=== PATIENT | female | born 1950 | race Caucasian/White ===

== ENCOUNTER → 2017-08-13 | Day surgery (SDC) | payer MEDICARE ==
[2017-08-12 08:43] VITALS: BMI 32.3
[~2017-08-13] MED LIST: LIDOCAINE 1% 20 ML VIAL (10MG/ML) FOR IV START INTRADERMA PRN; PROPOFOL 10 MG/ML 20 ML VIAL IV ONE
[2017-08-13 08:21] VITALS: RESP 16; TEMP 97.5
[2017-08-13] MEDS: LACTATED RINGERS 1,000 ML IV SCH ×2 (08:34→08:45)
--- NOTE | 2017-08-13 09:04 | P.PCN ---
Date of Procedure: 08/13/17 Procedure(s) Performed: BRIEF HISTORY: Patient is a 67-year-old pleasant white female, scheduled for an elective colonoscopy as a part of surveillance of long-standing history of ulcerative colitis diagnosed in 1975. She remains in clinical remission. PROCEDURE PERFORMED: Colonoscopy with random biopsies. PREOPERATIVE DIAGNOSIS: Long-standing history of ulcerative colitis. IV sedation per Anesthesia. PROCEDURE: After informed consent was obtained, the patient, was brought into the endoscopy unit. IV sedation was administered by Anesthesia under continuous monitoring. Digital rectal examination was normal. Initially the Olympus CF- 160 flexible video colonoscope was then inserted in the rectum, gradually advanced into the cecum without any difficulty. Careful examination was performed as the scope was gradually being withdrawn. Ileocecal valve and the appendiceal orifice were visualized and appeared normal. Prep was excellent. Mucosa of the cecum, ascending colon, transverse colon, descending colon, sigmoid colon, and rectum appeared normal. Random biopsies were done at every 10 cm intervals from the rectum to the cecum to rule out dysplasia. Retroflexion was performed in the rectum and no lesions were seen. The patient tolerated the procedure well. IMPRESSION: Normal-appearing colon from rectum to cecum with no evidence of colitis or colorectal neoplasia . RECOMMENDATIONS: Findings of this examination were discussed with the patient as well as her family. She was advised to follow with the biopsy results. If the biopsy does not have any evidence of dysplasia, she can have a repeat colonoscopy in 2 years.
[2017-08-13 09:26] VITALS: BP 125/61; PULSE 57
== END ==
LOC: ORWHC2ENDO 07:46
PROVIDERS: ATTEND Internal Medicine Gastroenterology
DX: K52.9 Noninfective gastroenteritis and colitis, unspecified (principal); Z79.899 Other long term (current) drug therapy; K21.9 Gastro-esophageal reflux disease without esophagitis; Z79.82 Long term (current) use of aspirin
CPT/HCPCS: 88305; 45380; J2704

== ENCOUNTER → 2019-02-21 | Outpatient (CLI) | payer MEDICARE | END | disposition home or self-care (01) | LOC: LABPAT 12:17 | PROVIDERS: ATTEND Orthopaedic Surgery | DX: Z01.812 Encounter for preprocedural laboratory examination (principal) | CPT/HCPCS: 87070 ==

== ENCOUNTER 2019-03-20 07:42 | Day surgery (SDC) | payer MEDICARE ==
[2019-03-16 11:39] VITALS: BMI 32.9
[~2019-03-20 07:42] MED LIST changes: +ACETAMINOPHEN TAB 500 MG TAB PO ONE; +GABAPENTIN 300 MG CAP PO ONE; +HYDROmorphone 0.5 MG/0.5 ML SYRINGE IVP PRN; +MELOXICAM 7.5 MG TAB PO ONE; +ONDANSETRON 4 MG/2 ML VIAL IVP ONE; -PROPOFOL 10 MG/ML 20 ML VIAL IV ONE; +ROPIVACAINE 246.25 MG, EPINEPHrine 0.5 MG, KETOROLAC 30 MG, cloNIDine HCL/PF 80 MCG, WA... MISCELLANE ONE; +TRANEXAMIC ACID 1,000 MG in SODIUM CHLORIDE 0.9% 100 ML IVPB ONE
[2019-03-20] MEDS: LACTATED RINGERS 1,000 ML IV SCH (08:11)
[2019-03-20] MEDS ORDERED: fentaNYL (PF) 50 MCG/ML 2 ML AMP IVP ONE ×2 (08:41→09:15)
[2019-03-20] MEDS ORDERED: MIDAZOLAM 2 MG/2 ML VIAL IVP ONE ×2 (08:41→09:24)
[2019-03-20] MEDS ORDERED: BISACODYL 10 MG SUPP RECTAL PRN (09:03)
[2019-03-20] MEDS ORDERED: MAGNESIUM HYDROXIDE 2,400 MG/10 ML CUP PO PRN (09:03)
[2019-03-20] MEDS ORDERED: HYDROcodone/APAP 5-325MG 1 EACH TAB PO PRN (09:03)
[2019-03-20] MEDS ORDERED: NA PHOS,M-B/NA PHOS,DI-BA 133 ML ENEMA RECTAL PRN (09:03)
[2019-03-20] MEDS ORDERED: hydrOXYzine PAMOATE 25 MG CAP PO PRN (09:03)
[2019-03-20] MEDS ORDERED: HYDROmorphone 0.5 MG/0.5 ML SYRINGE IVP PRN ×3 (09:03)
[2019-03-20] MEDS ORDERED: NALOXONE 0.4 MG/ML 1 ML VIAL IV PRN (09:03)
[2019-03-20] MEDS ORDERED: ONDANSETRON 4 MG/2 ML VIAL IVP PRN (09:03)
[2019-03-20] MEDS ORDERED: DIAZEPAM 5 MG TAB PO PRN (09:03)
[2019-03-20] MEDS ORDERED: MIDAZOLAM 2 MG/2 ML VIAL ONE (09:21)
[2019-03-20] MEDS ORDERED: TRANEXAMIC ACID 1,000 MG/10 ML VIAL ONE (09:21)
[2019-03-20] MEDS ORDERED: SODIUM CHLORIDE 0.9% 100 ML BAG ONE (09:21)
[2019-03-20] MEDS ORDERED: ceFAZolin 3,000 MG in SODIUM CHLORIDE 0.9% IRRIGATIO 3,000 ML IRRIGATION ONE (09:26)
[2019-03-20] MEDS ORDERED: ROPIVACAINE 0.2%-NS ON-Q PUMP 1,090 MG, EMPTY PAIN BALL 1 EACH MISCELLANE PRN (10:41)
--- NOTE | 2019-03-20 10:45 | P.ANPRN ---
Procedure Note - Anesthesia - Nerve Block Performed Right Adductor Canal Infusion Time Out Performed: Yes Date of Procedure: 03/20/19 Procedure Start Time: 08:41 Procedure Stop Time: 08:51 Location of Patient: PreOp Indication: Acute Post-Operative Pain, Requested by Surgeon Specifically requested for management of pain by : Daren Ventura Sedation Type: Sedate with meaningful contact maintained Preparation: Sterile Prep Position: Supine Catheter Depth at Skin (cm): 8 Needle Types: On-Q Needle Gauge: 18 Ultrasound used to visualize needle placement: Yes Ultrasound used to observe medication spread: Yes Injectate: 0.5% Ropivacaine (see comment for volume) (20 cc) Blood Aspirated: No Pain Paresthesia on Injection Noted: No Resistance on Injection: Normal Image Stored and Saved: Yes Events: Uneventful and Well Tolerated (9109)
--- NOTE | 2019-03-20 10:52 | P.OP ---
Date of Procedure: 03/20/19 Preoperative Diagnosis: severe osteoarthritis right knee Postoperative Diagnosis: severe osteoarthritis right knee Procedure(s) Performed: right total knee arthroplasty with [employer] patient specific guides Implants: [employer] Nephew Journey II CR Oxinium cruciate retaining femoral component size 4, right [employer] Journey right nonporous tibial baseplate size 3 [employer] Journey II, XLPE CR articular insert, size 10 mm, Size 3-4 right [employer] Journey BCS resurfacing oval patellar component, 29 mm All components were cemented using Palacos R bone cement. [employer] patient specific guides The articulation is Oxinium on polyethylene. Anesthesia: spinal Surgeon: Daren Ventura Ground Host/Hostess #1: Praveena Jorge Estimated Blood Loss (ml): 50 Pathology: other (bone and cartilage) Condition: stable Disposition: PACU Indications for Procedure: After failure of conservative treatment we discussed the surgical and nonsurgical treatment options at length. Patient wishes to proceed with a total knee arthroplasty. Complications specific to this procedure were discussed at length, including but not limited to infection, bleeding, stiffness, and nerve injury. Patient is aware of all these complications and informed consent was obtained Operative Findings: the operative findings are consistent with severe osteoarthritis of the right knee Description of Procedure: Patient was seen in the preoperative area consent was reviewed and operative site was marked with a skin marker. An adductor canal pain catheter was placed by anesthesia in the preoperative area. Patient was then brought to the operating room and given preoperative antibiotics intravenously. A spinal anesthetic was administered by the anesthesia department. A tourniquet was placed on the upper thigh and the lower extremity was prepped and draped in usual sterile fashion. A gram of transexamic acid was given. A universal timeout was then performed which confirmed the patient's name, surgical site, ALLERGIES, and consent. The lower extremity was then exsanguinated and tourniquet was inflated to 250 mmHg. A standard and anterior midline approach to the knee was performed. The skin and subcutaneous tissue was dissected down to the patellar tendon. A medial parapatellar arthrotomy was then performed. The knee was then extended, the patellar was everted, and the knee was again flexed. Anterior horns of both menisci were excised, and a release was performed to the posterior medial aspect of the knee. On gross visual inspection, there was complete loss of articular cartilage in the medial and patellofemoral joint spaces. There was also significant cartilage damage in the lateral compartment. There were multiple periarticular osteophytes. The patient specific guide was placed on the distal femur, and pinned in place. Using the patient specific guide, the distal femoral cut was performed. The cutting block was then removed and the cut was checked for flatness. The appropriate 5-in-1 cutting block was then pinned in place through the holes that were drilled through the patient specific guide. The anterior condyles were cut without notching. The posterior and chamfer cuts were performed while protecting the collateral ligaments. The cutting block was then removed. Attention was then directed to the tibia. The remaining ACL was removed with a Ronguer, and the tibia was then gently subluxed forward with a large bent knee retractor. Any remaining menisci was excised. The posterior lateral corner was cauterized in order to cauterize the lateral geniculate artery. The patient specific guide for the tibia was then placed and was held in place with pins. Pinholes were then placed for rotation of the tibial component as well. Proximal tibia was then cut and sized. Next trials were then placed with the appropriate-sized insert. The knee was able to fully extend and flex to 130 and was stable throughout all range of motion. The knee was then extended, patella everted. Patella was then measured, and then using an osteotomy guide, the patella was cut at the appropriate level. The patella was then measured and drilled and the patella trial was then placed. The knee was then taken through range of motion with the patella trial and the patella tracked normally. The knee was then extended patella trial was then removed and the patella was everted. Knee was then flexed and lug holes were drilled through the femoral trial and the femoral trial was then removed. The tibial was then exposed, and the tibial broach guide was then pinned in place after it was set for the appropriate rotation to allow for the most coverage without overhang. The tibia was then reamed and broached. The cut surfaces of bone were then irrigated with pulsatile lavage. The posterior structures were injected with the ropivacaine solution. The knee was also irrigated with Irrisept solution. The components were then opened, the cement was mixed, and the components were then cemented in place. The cement was allowed to harden with the knee in full extension. While the cement was hardening, the remaining soft tissues were then injected with a ropivacaine solution, which consisted of 246.25 mg of ropivacaine, 0.5 mg of epinephrine, 30 mg of Toradol, 80 g of clonidine, and 48.45 mL of sterile water, for a total of 100 mL of fluid injected. After the cemented hardened. The tourniquet was released, and hemostasis was obtained. A second gram of transexamic acid was given. The knee was again irrigated. The knee was again taken through range of motion and found to be stable throughout all range of motion of 0-130, and the patella tracked normally. The fascia was then closed with #2 strata fix suture. The subcutaneous tissue was closed with 3-0 Vicryl and 3-0 strata fix. Dermabond glue was used for the skin and placed with the knee in flexion. The patient was placed in a sterile silver dressing. Patient was then transferred to recovery room in stable condition. The human resources benefits assistant MAITE De Leon was required due the complexity surgery and the need for a skilled surgical territory manager. She assisted in positioning, draping, retraction, and closure of the wound.
[2019-03-20 11:42] VITALS: RESP 16
--- NOTE | 2019-03-20 12:00 | XR ---
Limited right knee HISTORY: Status post right knee arthroplasty 2 views of the right knee Patient is status post right knee arthroplasty. There is anatomic alignment. Bone mineralization is m ildly reduced. Lucency present in the soft tissues. IMPRESSION: Orthopedic follow-up.
[2019-03-20] MEDS: SODIUM CHLORIDE 0.9% 1,000 ML IV SCH (13:56)
[2019-03-20] MEDS: ASPIRIN 325 MG TAB PO SCH (19:56)
[2019-03-20] MEDS ORDERED: SENNOSIDES-DOCUSATE SODIUM 1 EACH TAB PO SCH (21:00)
[2019-03-20] MEDS ORDERED: ATORVASTATIN 20 MG TAB PO SCH (21:30)
[2019-03-20] MEDS: BALSALAZIDE DISODIUM 750 MG CAPSULE PO SCH (21:46)
--- NOTE | 2019-03-20 22:14 | P.CONS ---
History of Present Illness - Reason for Consult Consult date: 03/20/19 medical management Requesting physician: Jacek Ventura - Chief Complaint right knee surgery - History of Present Illness Consultation: This is a very pleasant 68-year-old patient was chronic stable medical conditions include GERD, hyperlipidemia, osteoarthritis, ulcerative colitis. The latter is being followed by Dr. Torres. Under control. Patient underwent a right total knee arthroplasty. Pain well still controlled. Did tolerate liquid diet today. No nausea vomiting. Comfortable laying in bed. Review of systems: GEN.: None EYES: None HEENT: None NECK: None RESPIRATORY: None CARDIOVASCULAR: None GASTROINTESTINAL: Occasional diarrhea GENITOURINARY: None MUSCULOSKELETAL: Joint pains LYMPHATICS: None HEMATOLOGICAL: None PSYCHIATRY: None NEUROLOGICAL: None Social history: Does not smoke or drink alcohol. . Physical examination: VITAL SIGNS: 97.8, 66, 16, 102/62, 95% room air GENERAL: BMI 33.5, sitting up in bed comfortable. EYES: Pupils equal. Conjunctiva normal. HEENT: External appearance of nose and ears normal, oral cavity grossly normal. NECK: JVD not raised; masses not palpable. HEART: First and second heart sounds are normal; no edema. LUNGS: Respiratory rate normal; clear to auscultation. ABDOMEN: Soft, nontender, liver spleen not palpable, no masses palpable. PSYCH: Alert and oriented x3; mood and affect normal. NEUROLOGICAL: Cranial nerves grossly intact; no facial asymmetry, power and sensation grossly intact. LYMPHATICS: No lymph nodes palpable in the axilla and neck MUSCULOSKELETAL: Dressing over the right knee. Evidence of OA in the hands Labs: None Assessment: -Right total knee arthroplasty -Primary osteoarthritis -Hyperlipidemia -GERD -Obesity BMI 33.5 -Chronic ulcerative colitis in remission Plan: Home medications resumed. Pain is controlled. Patient is on aspirin for DVT prophylaxis but Dr. Ventura. Care was discussed with the patient. Questions were answered. Thank you Dr. Ventura Past Medical History Past Medical History: GERD/Reflux, Hyperlipidemia, Osteoarthritis (OA) Additional Past Medical History / Comment(s): hx ulcerative colitis,states tends to run slightly higher than normal blood sugar but no tx. 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 MDRO Source:: Right Breast Past Surgical History: Adenoidectomy, Breast Surgery, Section, Orthopedic Surgery, Tonsillectomy Additional Past Surgical History / Comment(s): rt carpel tunnel, BOTH knee arthroscopies, D&C x2,preg termination x2, colonoscopies, abscess right breast Past Anesthesia/Blood Transfusion Reactions: Motion Sickness, Postoperative Nausea & Vomiting (PONV) Past Psychological History: No Psychological Hx Reported Smoking Status: Never smoker Past Alcohol Use History: Occasional Past Drug Use History: None Reported - Past Family History Mother Family Medical History: Cancer Additional Family Medical History / Comment(s): uterine mets pancreas Father Family Medical History: Myocardial Infarction ([place]) Additional Family Medical History / Comment(s): lung problems Medications and Allergies Home Medications Medication Instructions Recorded Confirmed Type Alendronate Sodium [Fosamax] 70 mg PO SA 12/06/15 03/20/19 History Ascorbic Acid [Vitamin C] 1,000 mg PO DAILY 12/06/15 03/16/19 History Calcium Carbonate/Vitamin D3 2 each PO HS 12/06/15 03/16/19 History [Calcium 600-Vit D3 200 Tablet] Cholecalciferol [Vitamin D3] 1,000 unit PO DAILY 12/06/15 03/20/19 History Esomeprazole Magnesium [NexIUM] 20 mg PO Q2D 12/06/15 03/20/19 History Mesalamine [Asacol Hd] 800 mg PO BID 12/06/15 03/16/19 History Multivitamins, Thera [Multivitamin] 1 tab PO DAILY 12/06/15 03/16/19 History Simvastatin [Zocor] 40 mg PO HS 12/06/15 03/16/19 History Ibuprofen [Motrin] 800 mg PO Q6H PRN 03/16/19 03/16/19 History Allergies Allergy/AdvReac Type Severity Reaction Status Date / Time No Known Allergies Allergy Verified 03/16/19 10:28 Physical Exam Vitals: Vital Signs Temp Pulse Pulse Pulse Resp BP BP 03/20/19 20:02 97.8 F 66 16 102/62 03/20/19 14:58 97.2 F L 77 16 123/72 03/20/19 14:05 75 114/70 03/20/19 13:50 62 105/69 03/20/19 13:35 67 121/59 03/20/19 13:20 66 106/65 03/20/19 13:05 67 110/68 03/20/19 12:50 66 102/69 03/20/19 12:35 97.4 F L 63 16 107/67 03/20/19 12:11 62 16 98/57 03/20/19 11:56 67 16 103/59 03/20/19 11:41 68 16 111/61 03/20/19 11:26 97.1 F L 68 14 124/57 03/20/19 08:08 97.8 F 79 16 146/82 Pulse Ox 03/20/19 20:02 95 03/20/19 14:58 94 L 03/20/19 14:05 97 03/20/19 13:50 99 03/20/19 13:35 94 L 03/20/19 13:20 93 L 03/20/19 13:05 99 03/20/19 12:50 92 L 03/20/19 12:35 97 03/20/19 12:11 91 L 03/20/19 11:56 92 L 03/20/19 11:41 91 L 03/20/19 11:26 97 03/20/19 08:08 97 Intake and Output 03/20/19 03/20/19 03/20/19 06:59 14:59 22:59 Intake Total 951 100 Output Total 50 Balance 901 100 Intake: IV 951 Oral 100 Output: Estimated Blood Loss 50 Other: Voiding Method Toilet # Voids 1 1 Weight 75.296 kg
[2019-03-21] MEDS: SODIUM CHLORIDE 0.9% 1,000 ML IV SCH (02:09)
[2019-03-21] MEDS: LACTATED RINGERS 1,000 ML IV SCH (03:18)
[2019-03-21] MEDS: BALSALAZIDE DISODIUM 750 MG CAPSULE PO SCH (07:07)
[2019-03-21] MEDS: ASPIRIN 325 MG TAB PO SCH (07:07)
[2019-03-21] MEDS: HYDROcodone/APAP 5-325MG 1 EACH TAB PO PRN ×2 (07:11→13:05)
[2019-03-21 07:33] VITALS: BP 123/81; PULSE 81; TEMP 98.6
[2019-03-21 07:35] LABS: Basophils # (A) 0.1 k/uL (0-0.2); Basophils % (A) 1 %; Eosinophils # (A) 0.2 k/uL (0-0.7); Eosinophils % (A) 1 %; HCT 39.6 % (34.0-46.0); HGB 13.4 gm/dL (11.4-16.0); Lymphocytes % (A) 9 %; MCH 30.4 pg (25.0-35.0); MCHC 33.7 g/dL (31.0-37.0); Mean Platelet Volume 9.4; Monocytes # (A) 0.8 k/uL (0-1.0); Monocytes % (A) 7 %; Neutrophils # (A) 8.7 k/uL (1.3-7.7); Neutrophils % (A) 81 %; Platelet Count 320 k/uL (150-450); RDW 11.9 % (11.5-15.5); WBC 10.7 k/uL (3.8-10.6)
[2019-03-21] MEDS ORDERED: MELOXICAM 7.5 MG TAB PO SCH (09:00)
[2019-03-21] MEDS ORDERED: MULTIVITAMINS, THERA 1 EACH TAB PO SCH (09:00)
--- NOTE | 2019-03-21 09:19 | P.DS ---
Providers Expected date of discharge: 03/21/19 Attending physician: Daren Ventura Consults: 03/20/19 09:03 Consult Physician Routine Consulting Provider: Frankie Carroll Consult Reason/Comments: medical management Do you want consulting provider notified?: Yes Primary care physician: Rosita Ortiz - Discharge Diagnosis(es) (1) Osteoarthritis of right knee Current Visit: Yes Status: Acute (2) S/P total knee arthroplasty Current Visit: Yes Status: Acute Hospital Course: This is a 68-year-old female with known history of degenerative arthritis of the right knee. The patient presents for evaluation. After discussion and consideration patient elects to proceed with total knee arthroplasty. The patient is seen preoperatively by Dr. Ventura and medically cleared for surgery by their primary care physician. Patient is admitted to [facility] on 03/20/2019 for total knee arthroplasty. The procedures performed without complication or sequelae. The patient is doing well postoperatively. Labs and vital signs are stable on day of discharge. On day of discharge patient's knee incision is healing well. There is minimal erythema. There is no drainage noted at this time. There is minimal soft tissue swelling to the knee. Patient has full foot and ankle motion without difficulty or pain. Calf is soft and nontender to palpation. Neurovascular status to the right lower extremity is intact. Patient is discharged home in g ood condition. Opioid start talking form is reviewed and signed at patient bedside. Please see med rec for accurate list of home medications. Plan - Discharge Summary Discharge Rx Participant: Yes New Discharge Prescriptions: New Aspirin 325 mg PO BID #60 tab HYDROcodone/APAP 5-325MG [[place] 5-325] 1 - 2 tab PO Q6HR PRN #56 tab PRN Reason: Pain Sennosides [Senokot] 2 tab PO DAILY PRN #60 tablet PRN Reason: Constipation No Action Esomeprazole Magnesium [NexIUM] 20 mg PO Q2D Cholecalciferol [Vitamin D3] 1,000 unit PO DAILY Calcium Carbonate/Vitamin D3 [Calcium 600-Vit D3 200 Tablet] 2 each PO HS Multivitamins, Thera [Multivitamin] 1 tab PO DAILY Ascorbic Acid [Vitamin C] 1,000 mg PO DAILY Simvastatin [Zocor] 40 mg PO HS Mesalamine [Asacol Hd] 800 mg PO BID Alendronate Sodium [Fosamax] 70 mg PO SA Ibuprofen [Motrin] 800 mg PO Q6H PRN PRN Reason: Pain Discharge Medication List Alendronate Sodium [Fosamax] 70 mg PO SA 12/06/15 [History] Ascorbic Acid [Vitamin C] 1,000 mg PO DAILY 12/06/15 [History] Calcium Carbonate/Vitamin D3 [Calcium 600-Vit D3 200 Tablet] 2 each PO HS 12/06/15 [History] Cholecalciferol [Vitamin D3] 1,000 unit PO DAILY 12/06/15 [History] Esomeprazole Magnesium [NexIUM] 20 mg PO Q2D 12/06/15 [History] Mesalamine [Asacol Hd] 800 mg PO BID 12/06/15 [History] Multivitamins, Thera [Multivitamin] 1 tab PO DAILY 12/06/15 [History] Simvastatin [Zocor] 40 mg PO HS 12/06/15 [History] Ibuprofen [Motrin] 800 mg PO Q6H PRN 03/16/19 [History] Aspirin 325 mg PO BID #60 tab 03/21/19 [Rx] HYDROcodone/APAP 5-325MG [[place] 5-325] 1 - 2 tab PO Q6HR PRN #56 tab 03/21/19 [Rx] Sennosides [Senokot] 2 tab PO DAILY PRN #60 tablet 03/21/19 [Rx] Follow up Appointment(s)/Referral(s): Daren Ventura DO [Doctor of Osteopathic Medicine] - 2 Weeks Activity/Diet/Wound Care/Special Instructions: Weightbearing as tolerated with a walker. CPM 5-6h daily. Leave dressing intact. May be removed by home care nurse or by patient in 10 days. May shower with dressing on. Recommend use of compression stockings daily for at least 2 weeks during the day to help prevent swelling and blood clots. May remove at night before sleeping. Please follow up with [facility] and call with any questions or concerns, . Discharge Disposition: HOME WITH HOME HEALTH SERVICES
--- NOTE | 2019-03-21 12:10 | P.PN ---
Progress Note - Text Anesthesia POD1. Patient is status post right TKR under spinal anesthesia with a right adductor canal catheter placed for postoperative pain relief. With ropivacaine 0.2% running at 8 cc's per hour, the patient's VAS is (0, 2). Catheter site is clean dry and intact.
--- NOTE | 2019-03-27 12:29 | P.PN ---
Progress Note - Text Progress Note Date: 03/21/19 - Chief Complaint right knee surgery Interval history: This is a very pleasant 68-year-old patient was chronic stable medical conditions include GERD, hyperlipidemia, osteoarthritis, ulcerative colitis. The latter is being followed by Dr. Torres. Under control. Patient underwent a right total knee arthroplasty. Today-doing better. No new issues. Has been out of bed. No nausea vomiting. No chest pain or shortness of breath. Review of systems: Was done for constitutional, cardiovascular, GI, pulmonary. Musculoskeletal, relevant finding as above Current medications are reviewed from today's electronic records Physical examination: VITAL SIGNS: 98.6, 81, 16, 123/81, 94% room air GENERAL: Sitting up, comfortable EYES: Pupils equal. Conjunctiva normal. HEENT: External appearance of nose and ears normal, oral cavity grossly normal. NECK: JVD not raised; masses not palpable. HEART: First and second heart sounds are normal; no edema. LUNGS: Respiratory rate normal; clear to auscultation. ABDOMEN: Soft, nontender, liver spleen not palpable, no masses palpable. PSYCH: Alert and oriented x3; mood and affect normal. MUSCULOSKELETAL: Dressing over the right knee. Evidence of OA in the hands Labs: White count 10.7 hemoglobin 13.4 Assessment: -Right total knee arthroplasty -Primary osteoarthritis -Hyperlipidemia -GERD -Obesity BMI 33.5 -Chronic ulcerative colitis in remission -Mild leukocytosis, likely reactive from surgery. No clinical evidence of infection Plan: Stable. Continue current medication treatment plan. Follow-up with PCP. Thank you Dr. Ventura
== END 2019-03-21 13:33 | disposition home health service (06) ==
LOC: OR 07:42 → 4SSUR 11:21 → OR 03-21 13:33
PROVIDERS: ATTEND Orthopaedic Surgery
DX: M17.11 Unilateral primary osteoarthritis, right knee (principal); E78.5 Hyperlipidemia, unspecified; E11.65 Type 2 diabetes mellitus with hyperglycemia; K21.9 Gastro-esophageal reflux disease without esophagitis; K51.90 Ulcerative colitis, unspecified, without complications; M81.0 Age-related osteoporosis without current pathological fracture; E66.9 Obesity, unspecified; Z68.33 Body mass index [BMI] 33.0-33.9, adult; Z79.899 Other long term (current) drug therapy; Z90.89 Acquired absence of other organs; Z97.3 Presence of spectacles and contact lenses; Z98.890 Other specified postprocedural states; Z80.0 Family history of malignant neoplasm of digestive organs; Z80.49 Family history of malignant neoplasm of other genital organs; Z82.49 Family history of ischemic heart disease and other diseases of the circulatory system; Z83.3 Family history of diabetes mellitus
CPT/HCPCS: 97116; 97161; 64448; 76942; 85025; 88300; 73560; 27447; C1713; C1776; J2250; J0171; J0690 ×3; J2405; J3010; J1885; J2795 ×2; J0735

== ENCOUNTER 2023-07-18 13:46 | Inpatient (IN) | payer MEDICARE ==
--- NOTE | 2023-07-18 14:05 | XR ---
Intraoperative/procedural fluoroscopic services were provided. Total fluoroscopy time is EXAMINATION TYPE: XR Hip Limited RT DATE OF EXAM: 07/18/2023 1:53 PM CLINICAL INDICATION:Female, 73 years old with history of pain; [facility] COMPARISON: None. TECHNIQUE: The right hip was examined in the frontal and lateral projections. FINDINGS: Horizontally oriented fracture seen extending through the subtrochanteric region and involv ing the lesser trochanter. There is mild valgus angulation of the fracture fragments. No significant foreshortening is identified. The remaining osseous structures are intact. IMPRESSION: Displaced subtrochanteric fracture.
[2023-07-18] MEDS: HYDROmorphone 0.5 MG/0.5 ML SYRINGE IVP STA ×2 (14:20→16:18)
[2023-07-18 14:50] LABS: Basophils # (A) 0.1 k/uL (0-0.2); Basophils % (A) 1 %; Eosinophils # (A) 0.2 k/uL (0-0.7); Eosinophils % (A) 3 %; HCT 43.4 % (34.0-46.0); HGB 14.1 gm/dL (11.4-16.0); Lymphocytes # (A) 1.6 k/uL (1.0-4.8); Lymphocytes % (A) 21 %; MCH 29.6 pg (25.0-35.0); MCHC 32.5 g/dL (31.0-37.0); MCV 91.2 fL (80.0-100.0); Monocytes # (A) 0.4 k/uL (0-1.0); Monocytes % (A) 6 %; Neutrophils # (A) 5.3 k/uL (1.3-7.7); Neutrophils % (A) 69 %; Platelet Count 285 k/uL (150-450); RBC 4.75 m/uL (3.80-5.40); RDW 12.4 % (11.5-15.5); WBC 7.7 k/uL (3.8-10.6)
[2023-07-18 14:56] LABS: Partial Thromboplastin Time 22.3 sec (22.0-30.0); Prothrombin Time 11.1 sec (10.0-12.5)
[2023-07-18 14:58] LABS: ALT 22 U/L (4-34); AST 25 U/L (14-36); African American GFR (CKD) >90 (>60 ml/min/1.73 sqM); Alkaline Phosphatase 94 U/L (38-126); Anion Gap 9 mmol/L; Blood Urea Nitrogen 19 mg/dL (7-17); Calcium 9.4 mg/dL (8.4-10.2); Carbon Dioxide 25 mmol/L (22-30); Chloride 107 mmol/L (98-107); Glucose 149 mg/dL (74-99); Non-African American GFR(CKD) >90 (>60 ml/min/1.73 sqM); Potassium 3.7 mmol/L (3.5-5.1); Sodium 141 mmol/L (137-145); Total Bilirubin 0.4 mg/dL (0.2-1.3); Total Protein 6.6 g/dL (6.3-8.2)
[2023-07-18] MEDS ORDERED: ACETAMINOPHEN TAB 325 MG TAB PO PRN (15:33)
[2023-07-18] MEDS ORDERED: NALOXONE 0.4 MG/ML 1 ML VIAL IV PRN (15:33)
--- NOTE | 2023-07-18 15:40 | ED ---
General Adult HPI - General Chief complaint: Extremity Injury, Lower Stated complaint: Right hip pain Time Seen by Provider: 07/18/23 13:47 Source: patient, EMS, RN notes reviewed, old records reviewed Mode of arrival: EMS Limitations: no limitations - History of Present Illness Initial comments: 73-year-old female with right hip pain. Patient states she was walking, felt a popping sensation in the right hip and lowered herself to the ground. There was no specific fall. No head or neck trauma. Patient was transported by paramedics with significant pain in the right hip with any movement. - Related Data Home Medications Medication Instructions Recorded Confirmed Alendronate Sodium [Fosamax] 70 mg PO SA 12/06/15 03/20/19 Ascorbic Acid [Vitamin C] 1,000 mg PO DAILY 12/06/15 03/16/19 Calcium Carbonate/Vitamin D3 2 each PO HS 12/06/15 03/16/19 [Calcium 600-Vit D3 5 Mcg (200 Iu)] Cholecalciferol [Vitamin D3 (25 1,000 unit PO DAILY 12/06/15 03/20/19 Mcg = 1000 Iu)] Esomeprazole Magnesium [NexIUM] 20 mg PO Q2D 12/06/15 03/20/19 Mesalamine [Asacol Hd] 800 mg PO BID 12/06/15 03/16/19 Multivitamins, Thera [Multivitamin 1 tab PO DAILY 12/06/15 03/16/19 (formulary)] Simvastatin [Zocor] 40 mg PO HS 12/06/15 03/16/19 Previous Rx's Medication Instructions Recorded Aspirin 325 mg PO BID #60 tab 03/21/19 HYDROcodone/APAP 5-325MG [[place] 1 - 2 tab PO Q6HR PRN #56 tab 03/21/19 5-325] Sennosides [Senokot] 2 tab PO DAILY PRN #60 tablet 03/21/19 Allergies Allergy/AdvReac Type Severity Reaction Status Date / Time No Known Allergies Allergy Verified 07/18/23 14:27 Review of Systems ROS Statement: Those systems with pertinent positive or pertinent negative responses have been documented in the HPI. ROS Other: All systems not noted in ROS Statement are negative. Past Medical History Past Medical History: GERD/Reflux, Hyperlipidemia Additional Past Medical History / Comment(s): hx ulcerative colitis,"borderline diabetes",osteoporosis History of Any Multi-Drug Resistant Organisms: MRSA Date of last positivie culture/infection: 12/07/15 MDRO Source:: Right Breast Past Surgical History: Adenoidectomy, Section, Orthopedic Surgery, Tonsillectomy Additional Past Surgical History / Comment(s): rt carpel tunnel, BOTH knee arthroscopies, D&C x2,preg termination x2, colonoscopies Past Anesthesia/Blood Transfusion Reactions: Motion Sickness Past Psychological History: No Psychological Hx Reported Past Alcohol Use History: Occasional Past Drug Use History: None Reported - Past Family History Mother Family Medical History: Cancer Additional Family Medical History / Comment(s): uterine mets pancreas Father Family Medical History: Myocardial Infarction ([place]) Additional Family Medical History / Comment(s): lung problems General Exam Limitations: no limitations General appearance: alert, in no apparent distress Head exam: Present: atraumatic, normocephalic Eye exam: Present: normal appearance, PERRL ENT exam: Present: normal exam Neck exam: Present: normal inspection. Absent: tenderness, meningismus Respiratory exam: Present: normal lung sounds bilaterally. Absent: respiratory distress, wheezes Cardiovascular Exam: Present: regular rate, normal rhythm GI/Abdominal exam: Present: soft. Absent: distended, tenderness Extremities exam: Present: other (Right leg, severe pain with range of motion of the right hip, distal pulses intact, normal sensation) Neurological exam: Present: alert, oriented X3, CN II-XII intact Psychiatric exam: Present: normal affect, normal mood Skin exam: Present: warm, dry, intact. Absent: cyanosis, diaphoretic Course Vital Signs 07/18/23 14:27 Pulse Rate 86 Respiratory 16 Rate Blood Pressure 134/72 O2 Sat by Pulse 95 Oximetry Medical Decision Making - Medical Decision Making Was pt. sent in by a medical professional or institution (, PA, THEATER SET PRODUCTION DESIGNER, urgent care, hospital, or senior care...) When possible be specific @ -No Did you speak to anyone other than the patient for history (EMS, parent, family, police, friend...)? What history was obtained from this source @ -Paramedics Did you review nursing and triage notes (agree or disagree)? Why? @ -I reviewed and agree with nursing and triage notes Were old charts reviewed (outside hosp., previous admission, EMS record, old EKG, old radiological studies, urgent care reports/EKG's, senior care records)? Report findings @ -No old charts were reviewed Differential Diagnosis @ -Differential Musculoskeletal Muscular strain, contusion, ligament sprain, fracture, arthritis, septic arthritis, bursitis, cellulitis, muscle spasm, nerve compression, DVT, arterial occlusion, herpes zoster, electrolyte abnormality, tumor.... This is not meant to be in all inclusive list EKG interpreted by me (3pts min.). @ -As above X-rays interpreted by me (1pt min.). @ -X-ray of the right hip showing a subtrochanteric fracture of the right femur CT interpreted by me (1pt min.). @ -None done U/S interpreted by me (1pt. min.). @ -None done What testing was considered but not performed or refused? (CT, X-rays, U/S, labs)? Why? @ -None What meds were considered but not given or refused? Why? @ -None Did you discuss the management of the patient with other professionals (professionals i.e. , PA, THEATER SET PRODUCTION DESIGNER, lab, RT, psych nurse, criminal justice social worker, cloud physicist, teacher, tourist information officer, case reviewer)? Give summary @Case discussed with Dr. Juarez, plan to keep the patient n.p.o. after midnight and admit to Dr. Ventura who is the patient's orthopedic surgeon. Was smoking cessation discussed for >3mins.? @ -No Was critical care preformed (if so, how long)? @ -No Were there social determinants of health that impacted care today? How? (Homel essness, low income, unemployed, alcoholism, drug addiction, transportation, low edu. Level, literacy, decrease access to med. care, intermediate, rehab)? @ -No Was there de-escalation of care discussed even if they declined (Discuss DNR or withdrawal of care, Hospice)? DNR status @ -No What co-morbidities impacted this encounter? (DM, HTN, Smoking, COPD, CAD, Cancer, CVA, ARF, Chemo, Hep., AIDS, mental health diagnosis, sleep apnea, morbid obesity)? @ -None Was patient admitted / discharged? Hospital course, mention meds given and route, prescriptions, significant lab abnormalities, going to OR and other pertinent info. @73-year-old female with right hip fracture. Patient has subtrochanteric right femur fracture. Laboratory testing ordered for preoperative and operative management. Patient admitted to orthopedics with internal medicine on consult. Undiagnosed new problem with uncertain prognosis? @ -No Drug Therapy requiring intensive monitoring for toxicity (Heparin, Nitro, Insulin, Cardizem)? @ -No Were any procedures done? @ -No Diagnosis/symptom? @ -Right femur fracture Acute, or Chronic, or Acute on Chronic? @ -[Acute Uncomplicated (without systemic symptoms) or Complicated (systemic symptoms)? @ -Default Side effects of treatment? @ -No Exacerbation, Progression, or Severe Exacerbation? @ -No Poses a threat to life or bodily function? How? (Chest pain, [place], [place], pneumonia, PE, COPD, DKA, ARF, appy, cholecystitis, CVA, Diverticulitis, Homicidal, Suicidal, threat to staff... and all critical care pts) @ -Yes, femur fracture in the elderly - Lab Data Result diagrams: 07/18/23 14:26 07/18/23 14:26 Lab Results 07/18/23 07/18/23 07/18/23 Range/Units 14:26 14:26 14:26 WBC 7.7 (3.8-10.6) k/uL RBC 4.75 (3.80-5.40) m/uL Hgb 14.1 (11.4-16.0) gm/dL Hct 43.4 (34.0-46.0) % MCV 91.2 (80.0-100.0) fL MCH 29.6 (25.0-35.0) pg MCHC 32.5 (31.0-37.0) g/dL RDW 12.4 (11.5-15.5) % Plt Count 285 (150-450) k/uL MPV 8.0 Neutrophils % 69 % Lymphocytes % 21 % Monocytes % 6 % Eosinophils % 3 % Basophils % 1 % Neutrophils # 5.3 (1.3-7.7) k/uL Lymphocytes # 1.6 (1.0-4.8) k/uL Monocytes # 0.4 (0-1.0) k/uL Eosinophils # 0.2 (0-0.7) k/uL Basophils # 0.1 (0-0.2) k/uL PT 11.1 (10.0-12.5) sec INR 1.0 (<1.2) APTT 22.3 (22.0-30.0) sec Sodium 141 (137-145) mmol/L Potassium 3.7 (3.5-5.1) mmol/L Chloride 107 (98-107) mmol/L Carbon Dioxide 25 (22-30) mmol/L Anion Gap 9 mmol/L BUN 19 H (7-17) mg/dL Creatinine 0.59 (0.52-1.04) mg/dL Est GFR (CKD-EPI)AfAm >90 (>60 ml/min/1.73 sqM) Est GFR (CKD-EPI)NonAf >90 (>60 ml/min/1.73 sqM) Glucose 149 H (74-99) mg/dL Calcium 9.4 (8.4-10.2) mg/dL Total Bilirubin 0.4 (0.2-1.3) mg/dL AST 25 (14-36) U/L ALT 22 (4-34) U/L Alkaline Phosphatase 94 (38-126) U/L Total Protein 6.6 (6.3-8.2) g/dL Albumin 4.0 (3.5-5.0) g/dL Blood Type Recheck Bld Type Recheck Status Spec Expiration Date 07/18/23 Range/Units 14:26 WBC (3.8-10.6) k/uL RBC (3.80-5.40) m/uL Hgb (11.4-16.0) gm/dL Hct (34.0-46.0) % MCV (80.0-100.0) fL MCH (25.0-35.0) pg MCHC (31.0-37.0) g/dL RDW (11.5-15.5) % Plt Count (150-450) k/uL MPV Neutrophils % % Lymphocytes % % Monocytes % % Eosinophils % % Basophils % % Neutrophils # (1.3-7.7) k/uL Lymphocytes # (1.0-4.8) k/uL Monocytes # (0-1.0) k/uL Eosinophils # (0-0.7) k/uL Basophils # (0-0.2) k/uL PT (10.0-12.5) sec INR (<1.2) APTT (22.0-30.0) sec Sodium (137-145) mmol/L Potassium (3.5-5.1) mmol/L Chloride (98-107) mmol/L Carbon Dioxide (22-30) mmol/L Anion Gap mmol/L BUN (7-17) mg/dL Creatinine (0.52-1.04) mg/dL Est GFR (CKD-EPI)AfAm (>60 ml/min/1.73 sqM) Est GFR (CKD-EPI)NonAf (>60 ml/min/1.73 sqM) Glucose (74-99) mg/dL Calcium (8.4-10.2) mg/dL Total Bilirubin (0.2-1.3) mg/dL AST (14-36) U/L ALT (4-34) U/L Alkaline Phosphatase (38-126) U/L Total Protein (6.3-8.2) g/dL Albumin (3.5-5.0) g/dL Blood Type Recheck No Previous Record Bld Type Recheck Status CABO Indicated Spec Expiration Date 07/21/20232325 Disposition Clinical Impression: Fracture of hip Disposition: ADMITTED IP TO THIS HOSP Condition: Stable Is patient prescribed a controlled substance at d/c from ED?: No Referrals: Rosita Ortiz MD [Primary Care Provider] - 1-2 days Time of Disposition: 15:40
[2023-07-18] MEDS: SODIUM CHLORIDE 0.9% 1,000 ML IV SCH (16:11)
[2023-07-18] MEDS: HYDROmorphone 1 MG/ML 1 ML SYRINGE IVP PRN (18:10)
[2023-07-19] MEDS ORDERED: DEXTROSE 50% SYRINGE 50 ML IVP PRN ×2 (00:39)
--- NOTE | 2023-07-19 00:43 | P.CONS ---
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 Patient states that she was walking and suddenly felt a popping sensation in the right hip and lowered herself to the ground. Denies any fall. Since then patient has been having severe right hip pain unable to ambulate or move. Denies any head or neck trauma. Patient was supposed to follow-up with orthopedic surgery next week. She was brought to the hospital by EMS. X-ray of the right hip showed displaced subtrochanteric fracture. Laboratory data showed WBC 7.7 hemoglobin 14.1 and platelets 285 Sodium 141 potassium 3.7 chloride 107 bicarb is 25 BUN 19 and creatinine 0.59 and blood sugar 149 Liver and units are not elevated. Review of Systems Constitutional: Patient denies any fever or chills . No generalized weakness or weight loss. Abdomen: Patient denied nausea vomiting and diarrhea and abdominal pain. Cardiovascular: Patient denies any chest pain or short of breath no palpitations. Respiratory: patient denied any cough is from production. No shortness of breath Neurologic: Patient denied any numbness or tingling headache. Musculoskeletal: Patient denies any complaints of joint swelling or deformity. Right hip pain Skin: Negative Psychiatric: Negative Endocrine: No heat or cold intolerance. No recent weight gain. Genitourinary: No dysuria or hematuria. 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 Year Discovered:: 12/07/15 MDRO Source:: Right Breast Past Surgical History: Adenoidectomy, Section, Orthopedic Surgery, Tonsillectomy Additional Past Surgical History / Comment(s): rt carpel tunnel, right knee arthroscopies, D&C x2,preg termination x1, colonoscopies Past Anesthesia/Blood Transfusion Reactions: Motion Sickness Past Psychological History: No Psychological Hx Reported Smoking Status: Never smoker Past Alcohol Use History: Occasional Past Drug Use History: None Reported - Past Family History Mother Family Medical History: Cancer Additional Family Medical History / Comment(s): uterine mets pancreas Father Family Medical History: Myocardial Infarction ([place]) Additional Family Medical History / Comment(s): lung problems Medications and Allergies Home Medications Medication Instructions Recorded Confirmed Type Alendronate Sodium [Fosamax] 70 mg PO SA 12/06/15 07/18/23 History Ascorbic Acid [Vitamin C] 1,000 mg PO DAILY 12/06/15 07/18/23 History Mesalamine [Asacol Hd] 800 mg PO DIRECTED 12/06/15 07/18/23 History Multivitamins, Thera [Multivitamin 1 tab PO DAILY 12/06/15 07/18/23 History (formulary)] Aspirin EC [Ecotrin Low Dose] 81 mg PO DAILY 07/18/23 07/18/23 History Cholecalciferol [Vitamin D3 (25 75 mcg PO DAILY 07/18/23 07/18/23 History Mcg = 1000 Iu)] Naproxen Sodium [Aleve] 220 mg PO DAILY 07/18/23 07/18/23 History Omeprazole 40 mg PO DAILY 07/18/23 07/18/23 History Prevagen 1 cap PO DAILY 07/18/23 07/18/23 History Propylene Glycol/Peg 400/Pf 1 dropper BOTH EYES BID 07/18/23 07/18/23 History [Systane 0.3-0.4% Ophth Dropperette] Rosuvastatin [Crestor] 20 mg PO DAILY 07/18/23 07/18/23 History Vit C/E/Zn/Coppr/Lutein/Zeaxan 1 cap PO DAILY 07/18/23 07/18/23 History [Preservision Areds 2 Softgel] Vit C/Zinc Citrate/Elderberry 2 tab PO DAILY 07/18/23 07/18/23 History [Sambucus Elderberry Gummy] Allergies Allergy/AdvReac Type Severity Reaction Status Date / Time No Known Allergies Allergy Verified 07/18/23 14:27 Physical Exam Vitals: Vital Signs Temp Pulse Pulse Resp BP BP Pulse Ox 07/18/23 17:01 97.7 F 74 17 122/68 94 L 07/18/23 16:33 76 16 113/62 96 07/18/23 16:15 97.7 F 74 17 122/68 94 L 04/14/24 15:33 75 18 113/65 96 07/18/23 14:27 86 16 134/72 95 Intake and Output 07/18/23 07/18/23 07/18/23 06:59 14:59 22:59 Intake Total 200 Balance 200 Intake: Oral 200 Other: Weight 69.853 kg 69.853 kg PHYSICAL EXAMINATION: Patient is lying in the bed comfortably, no acute distress, awake alert and oriented.. HEENT: Normocephalic. Neck is supple. Pupils reactive. Nostrils clear. Oral cavity is moist. Neck reveals no JVD, carotid bruits, or thyromegaly. CHEST EXAMINATION: Trachea is central. Symmetrical expansion. Bibasilar diminished sounds. Otherwise lung gonzalez clear to auscultation and percussion. CARDIAC: Normal S1, S2 with no gallops. No murmurs ABDOMEN: Soft. Bowel sounds normal. No organomegaly. No abdominal bruits. Extremities: reveal no edema. No clubbing or cyanosis Neurologically awake, alert, oriented x3 with well-coordinated movements. No focal deficits noted Skin: No rash or skin lesions. Psychiatric: Coperative. Nonsuicidal Musculoskeletal: No joint swelling or deformity. Right hip tenderness and decreased range of motion. 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 Continued pain management, bowel regimen and incentive spirometry. Insulin sliding scale was added for better blood sugar control. Follow-up chest x-ray and EKG. Patient is at low risk for low to moderate risk orthopedic surgery. Restarted appropriate home medications. Will continue to follow and further recommendations based on clinical course. Thank you for your consult.
[2023-07-19 05:43] LABS: Glucose,Whole Blood 167 mg/dL (70-110)
[2023-07-19] MEDS: INSULIN ASPART (NovoLOG) 100 UNIT/ML VIAL SQ SCH (06:45)
--- NOTE | 2023-07-19 08:18 | XR ---
EXAMINATION TYPE: XR chest 1V DATE OF EXAM: 07/19/2023 6:58 AM CLINICAL INDICATION:Female, 73 years old with history of pre op; H COMPARISON: None TECHNIQUE: XR chest 1V Frontal view of the chest. FINDINGS: Lungs/Pleura: There is no evidence of pleural effusion, focal consolidation, or pneumothorax. Pulmonary vascularity: Unremarkable. Heart/mediastinum: Cardiomediastinal silhouette is unremarkable. Musculoskeletal: No acute osseous pathology. Other findings: None IMPRESSION: No acute cardiopulmonary disease/process.
[2023-07-19 08:51] LABS: Blood Urea Nitrogen 20.9 mg/dL (9.0-27.0); Calcium 8.5 mg/dL (8.7-10.3); Carbon Dioxide 25.6 mmol/L (21.6-31.8); Chloride 107 mmol/L (96-109); Glucose 130 mg/dL (70-110); Potassium 3.8 mmol/L (3.5-5.5); Sodium 142 mmol/L (135-145)
[2023-07-19] MEDS: POLYETHYLENE GLYCOL 400 BOTH EYES SCH (09:04)
[2023-07-19] MEDS: PROPYLENE GLYCOL BOTH EYES SCH (09:04)
[2023-07-19] MEDS: [UNRECOGNIZED DRUG - OTHER] BOTH EYES SCH (09:04)
[2023-07-19] MEDS: MULTIVITAMINS, THERA 1 EACH TAB PO SCH (09:04)
[2023-07-19] MEDS: BALSALAZIDE DISODIUM 750 MG CAPSULE PO SCH (09:05)
[2023-07-19] MEDS: ATORVASTATIN 40 MG TAB PO SCH (09:05)
[2023-07-19] MEDS: PANTOPRAZOLE 40 MG TABLET PO SCH (09:05)
--- NOTE | 2023-07-19 09:49 | P.HPOR ---
History of Present Illness H&P Date: 07/19/23 Chief Complaint: right hip pain This is a 73-year-old female who is admitted to the emergency department yesterday after sustaining injury to her right leg. Patient states that she has had pain in her groin and thigh for the past month or so. She denies any trauma or injury. She states that [place] and felt a pop in her leg which caused her to a controlled fall to the ground. She states that she basically lowered herself to the ground after the pop in her leg. Patient does have history of being on bisphosphonates for osteoporosis. She was found to have a subtrochanteric fracture of the right hip and she is admitted to our service for surgical intervention and care. 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 Date of last positivie culture/infection: 12/07/15 MDRO Source:: Right Breast Past Surgical History: Adenoidectomy, Section, Orthopedic Surgery, Tonsillectomy Additional Past Surgical History / Comment(s): rt carpel tunnel, right knee arthroscopies, D&C x2,preg termination x1, colonoscopies Past Anesthesia/Blood Transfusion Reactions: Motion Sickness Past Psychological History: No Psychological Hx Reported Smoking Status: Never smoker Past Alcohol Use History: Occasional Past Drug Use History: None Reported - Past Family History Mother Family Medical History: Cancer Additional Family Medical History / Comment(s): uterine mets pancreas Father Family Medical History: Myocardial Infarction ([place]) Additional Family Medical History / Comment(s): lung problems Medications and Allergies Home Medications Medication Instructions Recorded Confirmed Type Alendronate Sodium [Fosamax] 70 mg PO SA 12/06/15 07/18/23 History Ascorbic Acid [Vitamin C] 1,000 mg PO DAILY 12/06/15 07/18/23 History Mesalamine [Asacol Hd] 800 mg PO DIRECTED 12/06/15 07/18/23 History Multivitamins, Thera [Multivitamin 1 tab PO DAILY 12/06/15 07/18/23 History (formulary)] Aspirin EC [Ecotrin Low Dose] 81 mg PO DAILY 07/18/23 07/18/23 History Cholecalciferol [Vitamin D3 (25 75 mcg PO DAILY 07/18/23 07/18/23 History Mcg = 1000 Iu)] Naproxen Sodium [Aleve] 220 mg PO DAILY 07/18/23 07/18/23 History Omeprazole 40 mg PO DAILY 07/18/23 07/18/23 History Prevagen 1 cap PO DAILY 07/18/23 07/18/23 History Propylene Glycol/Peg 400/Pf 1 dropper BOTH EYES BID 07/18/23 07/18/23 History [Systane 0.3-0.4% Ophth Dropperette] Rosuvastatin [Crestor] 20 mg PO DAILY 07/18/23 07/18/23 History Vit C/E/Zn/Coppr/Lutein/Zeaxan 1 cap PO DAILY 07/18/23 07/18/23 History [Preservision Areds 2 Softgel] Vit C/Zinc Citrate/Elderberry 2 tab PO DAILY 07/18/23 07/18/23 History [Sambucus Elderberry Gummy] Allergies Allergy/AdvReac Type Severity Reaction Status Date / Time No Known Allergies Allergy Verified 07/18/23 14:27 Physical Examination This is a pleasant 73-year-old female in no acute distress. She is alert and oriented 3. Her is present at bedside. Exam of the head neck reveal no obvious deformity. She has full cervical spine motion without difficulty or pain. Exam of the upper extremities unremarkable. She has full range of motion of the shoulders, elbows, wrists and fingers bilaterally. Neurovascular status the upper extremities is intact. Exam of the lower extremities reveals shortening and external rotation to the right leg. There is pain with any motion of the right leg. She has full foot and ankle motion bilaterally without difficulty or pain. Neurovascular status to the lower extremities is intact. Results X-rays of the right femur reveal a transverse subtrochanteric fracture of the proximal right femur. No other bony abnormalities are noted. - Labs Labs: Abnormal Lab Results - Last 24 Hours (Table) 07/18/23 07/19/23 07/19/23 Range/Units 14:26 04:42 05:41 BUN 19 H (7-17) mg/dL Creatinine 0.5 L (0.6-1.5) mg/dL BUN/Creatinine Ratio 41.80 H (12.00-20.00) Ratio Glucose 149 H 130 H (74-99) mg/dL POC Glucose (mg/dL) 167 H (70-110) mg/dL Calcium 8.5 L (8.7-10.3) mg/dL H & H 07/18/23 Range/Units 14:26 Hgb 14.1 (11.4-16.0) gm/dL Hct 43.4 (34.0-46.0) % Coagulation 07/18/23 Range/Units 14: INR 1.0 (<1.2) Result Diagrams: 07/18/23 14:26 07/19/23 04:42 Assessment and Plan (1) Fracture, subtrochanteric, right femur, closed Current Visit: Yes Status: Acute Code(s): S72.21XA - DISPLACED SUBTROCHANTERIC FRACTURE OF RIGHT FEMUR, INIT SNOMED Code(s): 345011250 (2) Right hip pain Current Visit: Yes Status: Acute Code(s): M25.551 - PAIN IN RIGHT HIP SNOMED Code(s): 37345263 Plan: The clinical and x-ray findings are discussed with the patient and her . It is recommended she undergo closed reduction with insertion of long in tertrochanteric nail of the right femur. The procedures discussed in detail including the possible risks and outcomes. She is tentatively scheduled for surgery today.
[2023-07-19 11:54] LABS: Glucose,Whole Blood 96 mg/dL (70-110)
[2023-07-19] MEDS: DEXAMETHASONE SOD PHOSPHATE 4 MG/ML 1 ML VIAL IVP ONE (15:59)
[2023-07-19] MEDS: ONDANSETRON 4 MG/2 ML VIAL IVP ONE (15:59)
[2023-07-19] MEDS: LACTATED RINGERS 1,000 ML IV ONE (16:00)
--- NOTE | 2023-07-19 16:28 | XR ---
EXAMINATION TYPE: XR femur LT DATE OF EXAM: 07/19/2023 3:39 PM CLINICAL INDICATION:Female, 73 years old with history of r/o fracture; COMPARISON: None TECHNIQUE: XR femur LT examined in Frontal and lateral projections. FINDINGS: No evidence of acute osseous pathology, joint dislocation, or soft tissue swelling. Mild o steophyte formations of the superior acetabulum. Moderate joint space narrowing most pronounced media lly. A fabella is present. IMPRESSION: 1. No acute osseous pathology. 2. Moderate to severe degeneration changes of the hip.
[2023-07-19] MEDS ORDERED: MIDAZOLAM 2 MG/2 ML VIAL ONE (16:50)
[2023-07-19] MEDS ORDERED: KETAMINE HCL IN 0.9 % NACL 50 MG/5 ML SYRINGE ONE (16:50)
[2023-07-19] MEDS ORDERED: fentaNYL (PF) 50 MCG/ML 2 ML AMP ONE (16:50)
[2023-07-19] MEDS: ceFAZolin 1,000 MG VIAL IVPB ONE (16:55)
[2023-07-19] MEDS: ceFAZolin 1,000 MG in SODIUM CHLORIDE 0.9% 1,000 ML IRRIGATION ONE (17:38)
--- NOTE | 2023-07-19 19:37 | P.OP ---
Date of Procedure: 07/19/23 Preoperative Diagnosis: Subtrochanteric fracture right hip Postoperative Diagnosis: Subtrochanteric fracture right hip Procedure(s) Performed: closed reduction and intramedullary nailing right hip Implants: [employer] TriGen Intertan nail 125, 11.5 mm x 18 cm. [employer] Intertan integrated-interlocking lag screw, 110 mm lag screw, 105 mm compression screw. [employer] L-P screw, 5.0 mm x 35 mm. Anesthesia: spinal Surgeon: Daren Ventura Estimated Blood Loss (ml): 500 Pathology: other (right femur reamings) Condition: stable Disposition: PACU Indications for Procedure: this is a 73-year-old female who sustained a fracture of her right sub-enteric femur while walking down a bleacher yesterday. She has a history of pain in that hip prior and also a history of taking bisphosphonates for osteoporosis. After reviewing discussing the options, I recommended a close reduction and intramedullary rodding of the right femur. Informed consent was obtained. Operative Findings: the operative findings are consistent with a displaced subtrochanteric fracture of the right femur Description of Procedure: The patient was seen in the preoperative area, consent was reviewed, and the operative site was marked with a skin marker. The surgical procedure was discussed at length with both the patient and the family at the bedside. All questions were answered to the best of my ability. The patient was brought to the operating room and placed on the fracture table. Anesthesia was administered by the anesthesia department. 2 g of Ancef were administered intravenously. The patient was placed supine on the fracture table with the fractured extremity in traction boot. The other extremity was placed in a well leg metcalf and the bony prominences were well padded. A universal timeout was then performed which confirmed the patient's name, surgical site, ALLERGIES, and consent. Fracture reduction was performed with a traction and abduction maneuver which was confirmed with fluoroscopy, both AP and lateral views.. After reduction was performed, the extremity was then prepped with ChloraPrep solution and draped in the usual sterile fashion. Utilizing fluoroscopy to identify the tip of the greater trochanter, a 3 cm longitudinal incision was made just proximal to the greater trochanter. Incision was carried through the fascia to the tip of the greater trochanter. Utilizing a curved awl, the entry point was created at the tip of the greater trochanter and centralized in the AP and lateral planes. These locations were confirmed by fluoroscopy. A guidewire was then inserted down the medullary canal. Sequentially reaming of the femur was performed to 13 mm distally and 17 mm proximally with the channel reamer. After reaming, appropriate size nail was inserted over the guidewire. The nail was inserted to the appropriate depth and the guidewire was removed. Placement of the morena was confirmed with both AP and lateral fluoroscopic views. The lag screw drill sleeve was placed in the jig and a small skin incision was made on the lateral aspect of the leg and the lag screw drill sleeve was locked into the guide. The 3.2 mm guide pin sleeve was inserted through the lag screw drill sleeve down to bone. A 3.2 mm distally threaded guidewire was inserted through the guide pin sleeve. The guidewire was inserted in the desired position in the femoral head, both anterior and posterior. The lag screw length cage was inserted over the guidepin to the back of the lag screw drill sleeve. Lag screw length was then measured from the cage. Next, the 7.0 mm compression screw starter drill was inserted in the lag screw drill sleeve beneath the guidepin. The compression screw starter drill was advanced under power until it abutted the back and of the lag screw drill sleeve. The 7.0 mm compression screw drill was inserted through the lag screw drill sleeve into the hole created by the compression screw starter drill. This was advanced under fluoroscopy to a depth 5 mm less and the measurement taken for the guidepin. The compression screw drill was removed and the antirotation bar was inserted into the same hole. The 3.2 mm guide pin sleeve was then removed from the drill guide. The lag screw drill was then inserted to a depth that was measured by the lag screw gauge. This was done under fluoroscopy. The lag screw was inserted over the guidewire to the appropriate depth using fluoroscopy. Traction was then released. The antirotation bar was then removed and the compression screw was advanced through the lag screw drill sleeve beneath the lag screw. This was advanced to the appropriate compression was achieved. 2 distal screws were placed with freehand technique from lateral to medial. This was done under fluoroscopic guidance. The entire assembly was then removed and final fluoroscopic x-rays were obtained. The wounds were then irrigated copiously with saline solution. Fascia was closed with 0-Vicryl. Subcutaneous tissues were closed with 2-0 Vicryl and the skin was closed with cipriano. Sterile dressings were applied. The patient was transported to the recovery room in stable condition. .
[2023-07-19] MEDS: HYDROmorphone 0.5 MG/0.5 ML SYRINGE IVP PRN (19:47)
[2023-07-19 19:56] LABS: Glucose,Whole Blood 182 mg/dL (70-110)
--- NOTE | 2023-07-19 20:00 | FL ---
EXAMINATION TYPE: FL guidance operating room, XR femur RT Intraoperative/procedural fluoroscopic serv ices were provided. Total fluoroscopy time is 5 minutes 9 seconds seconds with a total of 6 submitted images to PACS. Please see the operative/procedural note for further details. DAP: 20.9 and 4 Gycm2
[2023-07-19] MEDS: ASPIRIN 325 MG TAB PO SCH (21:08)
[2023-07-19] MEDS: SENNOSIDES-DOCUSATE SODIUM 1 EACH TAB PO SCH (21:08)
[2023-07-19 21:53] LABS: Glucose,Whole Blood 177 mg/dL (70-110)
[2023-07-19] MEDS: HYDROcodone/APAP 5-325MG 1 EACH TAB PO PRN (23:22)
[2023-07-20 06:12] LABS: Glucose,Whole Blood 141 mg/dL (70-110)
--- NOTE | 2023-07-20 06:27 | PN ---
PROGRESS NOTE DATE OF SERVICE: 07/19/2023 SUBJECTIVE: This is a 73-year-old woman who was admitted with right subtrochanteric fracture, is scheduled to go for surgery. No chest pain, no palpitations. No fever. The patient has some dull pain. OBJECTIVE: VITAL SIGNS: Pulse is 76, blood pressure 130/70, respirations 17. CHEST: Clear to auscultation. CARDIOVASCULAR: S1, S2. ABDOMEN: Soft. NERVOUS SYSTEM: Nonfocal. LABS REVIEWED: Reviewed, right leg status post fracture. ASSESSMENT: 1. Right subtrochanteric femoral fracture. 2. Osteoporosis. 3. Hyperlipidemia. 4. GERD. 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 RECOMMENDATIONS AND DISCUSSION: Recommend to continue current management, continue symptomatic treatment, otherwise cleared for surgery. We will continue to monitor. Guarded prognosis. Further recommendations to follow. MMLUL / IJN: [id number] /
[2023-07-20] MEDS: ONDANSETRON 4 MG/2 ML VIAL IVP PRN (06:35)
[2023-07-20 08:53] LABS: Basophils # (A) 0.02 X 10*3/uL (0.00-0.10); Basophils % (A) 0.2 %; Eosinophils # (A) 0 X 10*3/uL (0.04-0.35); Eosinophils % (A) 0 %; HCT 29.6 % (37.2-46.3); HGB 9.6 g/dL (12.0-15.0); Lymphocytes # (A) 1.29 X 10*3/uL (0.90-5.00); Lymphocytes % (A) 11.4 %; MCH 29.3 pg (27.0-32.0); MCHC 32.4 g/dL (32.0-37.0); MCV 90.2 FL (80.0-97.0); Mean Platelet Volume 10.9 FL (9.5-12.2); Monocytes # (A) 1.22 X 10*3/uL (0.20-1.00); Monocytes % (A) 10.8 %; NRBC Per 100 WBC 0 X 10*3/uL (0.00-0.01); Neutrophils # (A) 8.75 X 10*3/uL (1.80-7.70); Neutrophils % (A) 77.3 %; Platelet Count 236 X 10*3/uL (140-440); RBC 3.28 X 10*6/uL (4.10-5.20); RDW 12.6 % (11.5-14.5); WBC 11.31 X 10*3/uL (4.50-10.00)
--- NOTE | 2023-07-20 09:31 | P.PN ---
Subjective Progress Note Date: 07/20/23 Principal diagnosis: Subtrochanteric fracture right femur. Status post long intertrochanteric nail right femur. This is a 73-year-old female who is postop day #1 status post closed reduction with insertion of long intertrochanteric nail of the right femur. She is doing fairly well orthopedically. Physical therapy is working with her at this time. She has no new complaints or concerns. Vital signs are stable. Objective - Vital Signs Vital signs: Vital Signs Temp 97.9 F 07/20/23 07:17 Pulse 80 07/20/23 07:17 Resp 17 07/20/23 07:17 BP 124/71 07/20/23 07:17 Pulse Ox 92 L 07/20/23 07:17 FiO2 Intake & Output 07/19/23 07/20/23 07/20/23 18:59 06:59 18:59 Intake Total 901 0 Output Total 700 750 Balance 201 -750 Intake: IV 901 0 Output: Urine 700 250 Estimated Blood Loss 500 Other: Voiding Method Indwelling Catheter Indwelling Catheter Indwelling Catheter - Exam This is a pleasant 73-year-old female in no acute distress. She is alert and oriented x 3. Exam of the right leg reveals that her dressings are clean, dry and intact. She is currently getting up with physical therapy and moving fairly well. Neurovascular status to the lower extremities is intact. - Labs CBC & Chem 7: 07/20/23 05:42 07/19/23 04:42 Labs: Abnormal Lab Results - Last 24 Hours (Table) 07/19/23 07/19/23 07/20/23 Range/Units 19:54 21:52 05:42 WBC (4.50-10.00) X 10*3/uL RBC (4.10-5.20) X 10*6/uL Hgb (12.0-15.0) g/dL Hct (37.2-46.3) % Neutrophils # (1.80-7.70) X 10*3/uL Monocytes # (0.20-1.00) X 10*3/uL Eosinophils # (0.04-0.35) X 10*3/uL POC Glucose (mg/dL) 182 H 177 H (70-110) mg/dL Hemoglobin A1c 6.2 H (<=6.0) % 07/20/23 07/20/23 Range/Units 05:42 06:10 WBC 11.31 H (4.50-10.00) X 10*3/uL RBC 3.28 L (4.10-5.20) X 10*6/uL Hgb 9.6 L (12.0-15.0) g/dL Hct 29.6 L (37.2-46.3) % Neutrophils # 8.75 H (1.80-7.70) X 10*3/uL Monocytes # 1.22 H (0.20-1.00) X 10*3/uL Eosinophils # 0 L (0.04-0.35) X 10*3/uL POC Glucose (mg/dL) 141 H (70-110) mg/dL Hemoglobin A1c (<=6.0) % Assessment and Plan (1) Fracture, subtrochanteric, right femur, closed Current Visit: Yes Status: Acute Code(s): S72.21XA - DISPLACED SUBTROCHANTERIC FRACTURE OF RIGHT FEMUR, INIT SNOMED Code(s): 647021774 (2) Right hip pain Current Visit: Yes Status: Acute Code(s): M25.551 - PAIN IN RIGHT HIP SNOMED Code(s): 79870313 Plan: The clinical findings are discussed with the patient. We will continue with physical therapy. Continue IV antibiotics until discharge.
[2023-07-20 12:13] LABS: Glucose,Whole Blood 163 mg/dL (70-110)
[2023-07-20 16:46] LABS: Glucose,Whole Blood 114 mg/dL (70-110)
[2023-07-20 20:25] LABS: Glucose,Whole Blood 134 mg/dL (70-110)
--- NOTE | 2023-07-21 01:45 | PN ---
PROGRESS NOTE DATE OF SERVICE: 07/20/2023 SUBJECTIVE: This is a 73-year-old woman, who was admitted with leg fracture had closed reduction and intramedullary nailing of the right hip. No chest pain. No palpitations. No fever. PHYSICAL EXAMINATION: VITAL SIGNS: Pulse is 80, blood pressure 124/70, respirations 17. CHEST: Clear to auscultation. CARDIOVASCULAR: S1, S2. ABDOMEN: Soft, nontender. LEGS: Status post surgery. LABORATORY DATA: Hemoglobin is ntd ASSESSMENT: 1. Right subtrochanteric femoral fracture, status post closed reduction and intramedullary nailing. 2. Osteoporosis. 3. Increased WBC. 4. Hyperlipidemia. 5. Gastroesophageal reflux disease. 6. History of cerebrovascular accident on the right. RECOMMENDATIONS: I recommend to continue current medications, continue symptomatic treatment, DVT prophylaxis. Otherwise, we are going to repeat labs. Pain management. Closely follow with Orthopedic Surgery. Further recommendations to follow. KEONL / DINHN: [id number] / MTDD
[2023-07-21 05:37] LABS: Glucose,Whole Blood 126 mg/dL (70-110)
[2023-07-21 08:57] LABS: Basophils # (A) 0.04 X 10*3/uL (0.00-0.10); Basophils % (A) 0.4 %; Eosinophils # (A) 0.24 X 10*3/uL (0.04-0.35); Eosinophils % (A) 2.7 %; HCT 24.4 % (37.2-46.3); HGB 8.1 g/dL (12.0-15.0); Lymphocytes # (A) 2.05 X 10*3/uL (0.90-5.00); Lymphocytes % (A) 22.7 %; MCH 29.6 pg (27.0-32.0); MCHC 33.2 g/dL (32.0-37.0); MCV 89.1 FL (80.0-97.0); Mean Platelet Volume 10.9 FL (9.5-12.2); Monocytes # (A) 1.07 X 10*3/uL (0.20-1.00); Monocytes % (A) 11.8 %; NRBC Per 100 WBC 0 X 10*3/uL (0.00-0.01); Neutrophils # (A) 5.59 X 10*3/uL (1.80-7.70); Platelet Count 217 X 10*3/uL (140-440); RBC 2.74 X 10*6/uL (4.10-5.20); RDW 12.6 % (11.5-14.5); WBC 9.03 X 10*3/uL (4.50-10.00)
[2023-07-21] MEDS: HYDROcodone/APAP 5-325MG 1 EACH TAB PO PRN (09:16)
--- NOTE | 2023-07-21 09:22 | P.PN ---
Subjective Progress Note Date: 07/21/23 Principal diagnosis: Subtrochanteric fracture right femur. Status post long intertrochanteric nail right femur. This is a 73-year-old female who is postop day #2 status post closed reduction with insertion of long intertrochanteric nail of the right femur. She is doing fairly well orthopedically. She has no new complaints or concerns. Vital signs are stable. Objective - Vital Signs Vital signs: Vital Signs Temp 98.5 F 07/21/23 07:14 Pulse 93 07/21/23 07:14 Resp 18 07/21/23 07:14 BP 106/57 07/21/23 07:14 Pulse Ox 95 07/21/23 07:14 FiO2 Intake & Output 07/20/23 07/21/23 07/21/23 18:59 06:59 18:59 Output Total 825 600 Balance -825 -600 Output: Urine 825 600 Uretheral (Johnson) 300 Other: Voiding Method Indwelling Catheter Indwelling Catheter - Exam This is a pleasant 73-year-old female in no acute distress. She is alert and oriented x 3. Exam of the right leg reveals that her dressings are clean, dry and intact. She is currently getting up with physical therapy and moving fairly well. Neurovascular status to the lower extremities is intact. - Labs CBC & Chem 7: 07/21/23 06:13 07/19/23 04:42 Labs: Abnormal Lab Results - Last 24 Hours (Table) 07/20/23 07/20/23 07/20/23 Range/Units 12:11 16:45 20:24 RBC (4.10-5.20) X 10*6/uL Hgb (12.0-15.0) g/dL Hct (37.2-46.3) % Monocytes # (0.20-1.00) X 10*3/uL POC Glucose (mg/dL) 163 H 114 H 134 H (70-110) mg/dL 07/21/23 07/21/23 Range/Units 05:36 06:13 RBC 2.74 L (4.10-5.20) X 10*6/uL Hgb 8.1 L (12.0-15.0) g/dL Hct 24.4 L (37.2-46.3) % Monocytes # 1.07 H (0.20-1.00) X 10*3/uL POC Glucose (mg/dL) 126 H (70-110) mg/dL Assessment and Plan (1) Fracture, subtrochanteric, right femur, closed Current Visit: Yes Status: Acute Code(s): S72.21XA - DISPLACED SUBTROCHANTERIC FRACTURE OF RIGHT FEMUR, INIT SNOMED Code(s): 747657421 (2) Right hip pain Current Visit: Yes Status: Acute Code(s): M25.551 - PAIN IN RIGHT HIP SNOMED Code(s): 93469654 Plan: The clinical findings are discussed with the patient. We will continue with physical therapy. Continue IV antibiotics until discharge. Have added Toradol today for pain. Plan discharge to home versus rehab on Wednesday.
[2023-07-21 09:33] LABS: Blood Urea Nitrogen 14.8 mg/dL (9.0-27.0); Calcium 8.1 mg/dL (8.7-10.3); Carbon Dioxide 27.4 mmol/L (21.6-31.8); Chloride 107 mmol/L (96-109); Glucose 127 mg/dL (70-110); Potassium 3.6 mmol/L (3.5-5.5); Sodium 142 mmol/L (135-145)
[2023-07-21 12:22] LABS: Glucose,Whole Blood 129 mg/dL (70-110)
[2023-07-21] MEDS: KETOROLAC 15 MG/ML 1 ML VIAL IVP SCH (12:28)
[2023-07-21] MEDS: FERROUS SULFATE 325 MG TAB PO SCH (15:19)
[2023-07-21 17:16] LABS: Glucose,Whole Blood 120 mg/dL (70-110)
[2023-07-21 21:52] LABS: Glucose,Whole Blood 130 mg/dL (70-110)
--- NOTE | 2023-07-21 22:33 | PN ---
PROGRESS NOTE DATE OF SERVICE: 07/21/2023 SUBJECTIVE: This 73-year-old woman was admitted with right subtrochanteric femoral fracture, is awaiting ECF rehab. No chest pain, no palpitations, no fever. OBJECTIVE: VITAL SIGNS: Pulse is 93, blood pressure 130/66, respirations 18. CHEST: Clear to auscultation. CARDIOVASCULAR: S1, S2. ABDOMEN: Soft. LABORATORY DATA: Hemoglobin 8.1. ASSESSMENT: 1. Right subtrochanteric femoral fracture, status post closed reduction, intramedullary nailing. 2. Osteoporosis. 3. Increased WBC. 4. Hyperlipidemia. 5. GERD. 6. History of CVA on the right. RECOMMENDATIONS AND DISCUSSION: I recommend to continue current management, continue symptomatic treatment. Otherwise, I would also recommend iron supplementation. Continue to monitor. Further recommendations to follow. Repeat hemoglobin tomorrow. MMODL / IJN: [id number] /
[2023-07-22 06:11] LABS: Glucose,Whole Blood 124 mg/dL (70-110)
--- NOTE | 2023-07-22 08:28 | P.PN ---
Subjective Progress Note Date: 07/22/23 Principal diagnosis: Subtrochanteric fracture right femur. Status post long intertrochanteric nail right femur. This is a 73-year-old female who is postop day #3 status post closed reduction with insertion of long intertrochanteric nail of the right femur. She is doing fairly well orthopedically. She has no new complaints or concerns. Vital signs are stable. Objective - Vital Signs Vital signs: Vital Signs Temp 98.1 F 07/22/23 07:28 Pulse 87 07/22/23 07:28 Resp 19 07/22/23 07:28 BP 122/60 07/22/23 07:28 Pulse Ox 93 L 07/22/23 07:28 FiO2 Intake & Output 07/21/23 07/22/23 07/22/23 18:59 06:59 18:59 Intake Total 500 Output Total 900 Balance -400 Intake: Oral 500 Output: Urine 900 Other: Voiding Method Toilet Bedside Commode # Voids 2 3 - Exam This is a pleasant 73-year-old female in no acute distress. She is alert and oriented x 3. Exam of the right leg reveals that her dressings are clean, dry and intact. She is currently getting up with physical therapy and moving fairly well. Neurovascular status to the lower extremities is intact. - Labs CBC & Chem 7: 07/21/23 06:13 07/21/23 06:13 Labs: Abnormal Lab Results - Last 24 Hours (Table) 07/21/23 07/21/23 07/21/23 Range/Units 06:13 06:13 12:21 RBC 2.74 L (4.10-5.20) X 10*6/uL Hgb 8.1 L (12.0-15.0) g/dL Hct 24.4 L (37.2-46.3) % Monocytes # 1.07 H (0.20-1.00) X 10*3/uL Creatinine 0.5 L (0.6-1.5) mg/dL BUN/Creatinine Ratio 29.60 H (12.00-20.00) Ratio Glucose 127 H (70-110) mg/dL POC Glucose (mg/dL) 129 H (70-110) mg/dL Calcium 8.1 L (8.7-10.3) mg/dL 07/21/23 07/21/23 07/22/23 Range/Units 17:14 21:50 06:10 RBC (4.10-5.20) X 10*6/uL Hgb (12.0-15.0) g/dL Hct (37.2-46.3) % Monocytes # (0.20-1.00) X 10*3/uL Creatinine (0.6-1.5) mg/dL BUN/Creatinine Ratio (12.00-20.00) Ratio Glucose (70-110) mg/dL POC Glucose (mg/dL) 120 H 130 H 124 H (70-110) mg/dL Calcium (8.7-10.3) mg/dL Assessment and Plan Assessment: Patient is doing well, able to ambulate to the bathroom and in and out of bed with a walker and assistance. Pain is controlled with Toradol. Neurovascularly intact. Plan for discharge home on Wednesday. (1) Fracture, subtrochanteric, right femur, closed Current Visit: Yes Status: Acute Code(s): S72.21XA - DISPLACED SUBTROCHANTERIC FRACTURE OF RIGHT FEMUR, INIT SNOMED Code(s): 207132126 (2) Right hip pain Current Visit: Yes Status: Acute Code(s): M25.551 - PAIN IN RIGHT HIP SNOMED Code(s): 70415327 Plan: The clinical findings are discussed with the patient. We will continue with physical therapy. Continue IV antibiotics until discharge. Continue Toradol for pain, patient reports this helped. Plan discharge to home on Wednesday with homecare/PT.
[2023-07-22 11:18] LABS: Basophils # (A) 0.04 X 10*3/uL (0.00-0.10); Basophils % (A) 0.5 %; Eosinophils # (A) 0.31 X 10*3/uL (0.04-0.35); Eosinophils % (A) 3.5 %; HCT 23.4 % (37.2-46.3); HGB 7.6 g/dL (12.0-15.0); Lymphocytes # (A) 1.29 X 10*3/uL (0.90-5.00); Lymphocytes % (A) 14.6 %; MCH 29.1 pg (27.0-32.0); MCHC 32.5 g/dL (32.0-37.0); MCV 89.7 FL (80.0-97.0); Mean Platelet Volume 10.4 FL (9.5-12.2); Monocytes # (A) 0.69 X 10*3/uL (0.20-1.00); Monocytes % (A) 7.8 %; NRBC Per 100 WBC 0 X 10*3/uL (0.00-0.01); Neutrophils # (A) 6.48 X 10*3/uL (1.80-7.70); Neutrophils % (A) 73.1 %; Platelet Count 224 X 10*3/uL (140-440); RBC 2.61 X 10*6/uL (4.10-5.20); RDW 12.6 % (11.5-14.5); WBC 8.85 X 10*3/uL (4.50-10.00)
[2023-07-22 11:29] LABS: Blood Urea Nitrogen 14.5 mg/dL (9.0-27.0); Calcium 8.5 mg/dL (8.7-10.3); Carbon Dioxide 27.5 mmol/L (21.6-31.8); Chloride 105 mmol/L (96-109); Glucose 154 mg/dL (70-110); Potassium 3.2 mmol/L (3.5-5.5); Sodium 141 mmol/L (135-145)
[2023-07-22 11:52] LABS: Glucose,Whole Blood 119 mg/dL (70-110)
[2023-07-22] MEDS: POTASSIUM CHLORIDE ER 20 MEQ TAB.ER PO STA (12:12)
[2023-07-22] MEDS: PANTOPRAZOLE 40 MG TABLET PO SCH (13:30)
[2023-07-22 16:34] LABS: Glucose,Whole Blood 121 mg/dL (70-110)
[2023-07-22 20:17] LABS: Glucose,Whole Blood 124 mg/dL (70-110)
--- NOTE | 2023-07-22 23:30 | PN ---
PROGRESS NOTE DATE OF SERVICE: 07/22/2023 SUBJECTIVE: This 73-year-old woman was admitted after right hip surgery, is improving significantly. No chest pain, no palpitations. Hemoglobin is 7.6 and potassium is 3.2. OBJECTIVE: VITAL SIGNS: Pulse is 87, blood pressure 110/60, respirations 19. CHEST: Clear to auscultation. CARDIOVASCULAR: S1, S2 ABDOMEN: Soft. LEGS: Status post surgery. LABORATORY DATA: Potassium 3.2, hemoglobin 7.2. ASSESSMENT: 1. Right subtrochanteric femoral fracture, status post closed reduction, intramedullary nailing. 2. Osteoporosis. 3. Increased WBC. 4. Hypokalemia. 5. Hyperlipidemia. 6. GERD. 7. History of CVA on the right. RECOMMENDATIONS: Recommended to continue current management, continue symptomatic treatment, repeat labs. Otherwise, continue with iron supplementation. Recommend close followup in the outpatient setting with primary physician regarding the followup of anemia. Otherwise, rest of the recommendations per Orthopedic Surgery. Proton pump inhibitors. MMODL / IJN: [id number] /
[2023-07-23 06:12] LABS: Glucose,Whole Blood 121 mg/dL (70-110)
[2023-07-23 08:29] VITALS: PULSE 84
[2023-07-23 09:19] LABS: African American GFR (CKD) >90 (>60 ml/min/1.73 sqM); Anion Gap 2 mmol/L; Blood Urea Nitrogen 18 mg/dL (7-17); Calcium 8.3 mg/dL (8.4-10.2); Carbon Dioxide 28 mmol/L (22-30); Chloride 110 mmol/L (98-107); Glucose 120 mg/dL (74-99); Non-African American GFR(CKD) >90 (>60 ml/min/1.73 sqM); Potassium 3.5 mmol/L (3.5-5.1); Sodium 140 mmol/L (137-145)
[2023-07-23] MEDS ORDERED: Potassium Replacement Protocol 1 EACH MISC MISCELLANE PRN (09:22)
[2023-07-23 09:23] LABS: Basophils % (A) 0 %; Eosinophils # (A) 0.3 k/uL (0-0.7); Eosinophils % (A) 5 %; HCT 23.5 % (34.0-46.0); Lymphocytes # (A) 1.3 k/uL (1.0-4.8); Lymphocytes % (A) 18 %; MCH 30.3 pg (25.0-35.0); MCHC 33.1 g/dL (31.0-37.0); MCV 91.6 fL (80.0-100.0); Mean Platelet Volume 8.6; Monocytes # (A) 0.5 k/uL (0-1.0); Monocytes % (A) 7 %; Neutrophils # (A) 4.9 k/uL (1.3-7.7); Neutrophils % (A) 69 %; Platelet Count 276 k/uL (150-450); RBC 2.56 m/uL (3.80-5.40); RDW 13.3 % (11.5-15.5); WBC 7.1 k/uL (3.8-10.6)
[2023-07-23 09:24] LABS: HGB 7.8 gm/dL (11.4-16.0)
[2023-07-23] MEDS: POTASSIUM CHLORIDE ER 20 MEQ TAB.ER PO SCH (09:51)
--- NOTE | 2023-07-23 10:16 | P.DS ---
Providers Date of admission: 07/18/23 15:33 Expected date of discharge: 07/23/23 Attending physician: Daren Ventura Consults: 07/18/23 15:35 Consult Physician Urgent Consulting Provider: Andrea Monsalve Reason/Comments: Right hip fracture, medical management Do you want consulting provider notified?: Already Contacted Primary care physician: Rosita Ortiz - Discharge Diagnosis(es) (1) Status post hip surgery Status: Acute (2) Fracture, subtrochanteric, right femur, closed Status: Acute Hospital Course: This is a 73-year-old female presented to the emergency department at [facility] with right hip pain after feeling pop in the hip. She was found to have a subtrochanteric femur fracture. After discussion and consideration the patient elects to proceed with a long IT nail insertion. The patient was seen preoperatively by internal medicine and cleared for surgery. The patient underwent a right hip long IT nail insertion. The procedure was performed without complication or sequelae. The patient is doing well postoperatively. Labs and vital signs are stable the day of discharge. On the day of discharge the patient's hip incisions are healing well. There is minimal erythema. There is no drainage noted at this time. There is minimal soft tissue swelling to the hip and thigh. The patient has full foot and ankle motion without difficulty or pain. Neurovascular status to the right lower extremity is intact. The patient will be discharged home today in stable condition. Pertinent Studies: Laboratory Tests 07/23/23 07/23/23 07:47 07:47 WBC 7.1 RBC 2.56 L Hgb 7.8 L D Hct 23.5 L Chloride 110 H BUN 18 H Creatinine 0.50 L Glucose 120 H Calcium 8.3 L Patient Condition at Discharge: Stable Plan - Discharge Summary Discharge Rx Participant: Yes New Discharge Prescriptions: New Aspirin 81 mg PO BID #60 tab Sennosides-Docusate Sodium [Senokot-S] 2 tab PO DAILY #30 tablet HYDROcodone/APAP 5-325MG [[place] 5] 1 - 2 each PO Q4-6H PRN #30 tab PRN Reason: Pain Ferrous Sulfate [Feosol] 325 mg PO DAILY #30 tab Continue Multivitamins, Thera [Multivitamin (formulary)] 1 tab PO DAILY Ascorbic Acid [Vitamin C] 1,000 mg PO DAILY Mesalamine [Asacol Hd] 800 mg PO BID Alendronate Sodium [Fosamax] 70 mg PO SA Vit C/Zinc Citrate/Elderberry [Sambucus Elderberry Gummy] 2 tab PO DAILY Prevagen 1 cap PO DAILY Rosuvastatin [Crestor] 20 mg PO DAILY Omeprazole 40 mg PO DAILY Naproxen Sodium [Aleve] 220 mg PO DAILY Vit C/E/Zn/Coppr/Lutein/Zeaxan [Preservision Areds 2 Softgel] 1 cap PO DAILY Propylene Glycol/Peg 400/Pf [Systane 0.3-0.4% Ophth Dropperette] 1 dropper BOTH EYES BID Cholecalciferol [Vitamin D3 (25 Mcg = 1000 Iu)] 75 mcg PO DAILY Discontinued Aspirin EC [Ecotrin Low Dose] 81 mg PO DAILY Discharge Medication List Alendronate Sodium [Fosamax] 70 mg PO SA 12/06/15 [History] Ascorbic Acid [Vitamin C] 1,000 mg PO DAILY 12/06/15 [History] Mesalamine [Asacol Hd] 800 mg PO BID 12/06/15 [History] Multivitamins, Thera [Multivitamin (formulary)] 1 tab PO DAILY 12/06/15 [History] Cholecalciferol [Vitamin D3 (25 Mcg = 1000 Iu)] 75 mcg PO DAILY 07/18/23 [History] Naproxen Sodium [Aleve] 220 mg PO DAILY 07/18/23 [History] Omeprazole 40 mg PO DAILY 07/18/23 [History] Prevagen 1 cap PO DAILY 07/18/23 [History] Propylene Glycol/Peg 400/Pf [Systane 0.3-0.4% Ophth Dropperette] 1 dropper BOTH EYES BID 07/18/23 [History] Rosuvastatin [Crestor] 20 mg PO DAILY 07/18/23 [History] Vit C/E/Zn/Coppr/Lutein/Zeaxan [Preservision Areds 2 Softgel] 1 cap PO DAILY 07/18/23 [History] Vit C/Zinc Citrate/Elderberry [Sambucus Elderberry Gummy] 2 tab PO DAILY 07/18/23 [History] Aspirin 81 mg PO BID #60 tab 07/23/23 [Rx] Ferrous Sulfate [Feosol] 325 mg PO DAILY #30 tab 07/23/23 [Rx] HYDROcodone/APAP 5-325MG [[place] 5] 1 - 2 each PO Q4-6H PRN #30 tab 07/23/23 [Rx] Sennosides-Docusate Sodium [Senokot-S] 2 tab PO DAILY #30 tablet 07/23/23 [Rx] Follow up Appointment(s)/Referral(s): Rosita Ortiz MD [Primary Care Provider] - 07/30/23 8:20 am (Arrive at 8:05 AM please.) [facility], [NON-STAFF] - 1-2 Days ([facility] will call you to schedule your in home nursing, physical therapy, and occupational therapy visits. ) Daren Ventura DO [Doctor of Osteopathic Medicine] - 08/04/23 10:00 am Ambulatory/Diagnostic Orders: Basic Metabolic Panel [LAB.AMB] Time Frame: 3 Days, Location: None Selected Patient Instructions/Handouts: Closed Reduction Internal Fixation of Leg Fracture in Adults (DC) Activity/Diet/Wound Care/Special Instructions: Keep hip incisions clean and dry. Change dressings daily with dry gauze and tape. May shower Weightbearing as tolerated with a walker Follow up with Dr. Daren Ventura in 2 weeks after surgery for staple removal. Call [facility] with any questions or concerns, . Patient requires a commode chair due to being room confined from the right hip fracture. Follow-up with primary care provider for repeat labs CBC and CMP hemoglobin as well as potassium in the outpatient setting. Discharge Disposition: HOME WITH HOME HEALTH SERVICES
[2023-07-23 10:43] VITALS: BP 144/79; TEMP 98.4
[2023-07-23 11:28] VITALS: RESP 20
[2023-07-23 11:41] LABS: Glucose,Whole Blood 106 mg/dL (70-110)
--- NOTE | 2023-07-23 20:27 | PN ---
PROGRESS NOTE DATE OF SERVICE: 07/23/2023 SUBJECTIVE: This 73-year-old was admitted after right hip surgery, is improving significantly. No chest pain, no palpitations, no fever. OBJECTIVE: VITAL SIGNS: Pulse is 84, blood pressure 124/70, respirations 18. CHEST: Clear to auscultation. CARDIOVASCULAR: S1, S2. ABDOMEN: Soft. NERVOUS SYSTEM: Nonfocal. LABORATORY DATA: Hemoglobin 7.8. ASSESSMENT: 1. Right subtrochanteric femoral fracture, status post closed reduction, intramedullary nailing. 2. Osteoporosis. 3. Increased WBC. 4. Hypokalemia. 5. Hyperlipidemia. 6. GERD. 7. History of CVA, right. RECOMMENDATIONS: Recommended to continue current management, continue symptomatic treatment, otherwise I would recommend to continue with iron at home and closely follow with primary physician. CBC outpatient. Rest of the recommendations per Orthopedic surgery. MMODL / IJN: [id number] /
[2023-07-24] MEDS ORDERED: NON FORMULARY DRUG (Alendronate Sodium [Fosamax] 70 MG Tablet) PO SCH (00:24)
== END 2023-07-23 13:18 | disposition home health service (06) | DRG 482 ==
LOC: EC 13:46 → 4SSUR 15:33
PROVIDERS: ADMIT Orthopaedic Surgery; ATTEND Orthopaedic Surgery
PROC: 0QS636Z Reposition Right Upper Femur with Intramedullary Internal Fixation Device, Percutaneous Approach (ICD-10-PCS; principal; 2023-07-19 07:30)
DX: S72.21XA Displaced subtrochanteric fracture of right femur, initial encounter for closed fracture (principal); K21.9 Gastro-esophageal reflux disease without esophagitis; M81.0 Age-related osteoporosis without current pathological fracture; R73.03 Prediabetes; E87.6 Hypokalemia; E78.5 Hyperlipidemia, unspecified; W19.XXXA Unspecified fall, initial encounter; Z79.82 Long term (current) use of aspirin; Z79.83 Long term (current) use of bisphosphonates; Z79.899 Other long term (current) drug therapy; Z82.49 Family history of ischemic heart disease and other diseases of the circulatory system; Z86.73 Personal history of transient ischemic attack (TIA), and cerebral infarction without residual deficits
CPT/HCPCS: 36415; 71045; 73501; 80048; 80053; 83036; 85025; 85610; 85730; 86850; 86900; 86901; 88307; 88311; 93005; 96361; 96374; 96376; 99285

== ENCOUNTER 2024-02-16 07:40 | Day surgery (SDC) | payer MEDICARE ==
[2024-02-16] MEDS ORDERED: LACTATED RINGERS 1,000 ML IV SCH (07:41)
[2024-02-16] MEDS: IV FLUID CONTINUATION 1,000 ML IV ONE (08:29)
[2024-02-16 08:43] VITALS: TEMP 97
[2024-02-16] MEDS ORDERED: LIDOCAINE 1% INJ 10MG/ML (20 ML MDV) ONE (09:47)
[2024-02-16] MEDS ORDERED: PROPOFOL 10 MG/ML 20 ML VIAL IV ONE (09:47)
--- NOTE | 2024-02-16 10:13 | P.PCN ---
Date of Procedure: 02/16/24 Procedure(s) Performed: BRIEF HISTORY: Patient is a 73-year-old pleasant white female scheduled for an elective colonoscopy as a part of t screening for colon cancer for longstanding history of ulcerative colitis diagnosed in 1974. She is currently maintained on Asacol 3 tablets to times daily. PROCEDURE PERFORMED: Colonoscopy with biopsy. PREOPERATIVE DIAGNOSIS: Colon cancer/longstanding history of ulcerative colitis. IV sedation per Anesthesia. PROCEDURE: After informed consent was obtained, the patient, was brought into the endoscopy unit. IV sedation was administered by Anesthesia under continuous monitoring. Digital rectal examination was normal. Initially the Olympus CF-160 flexible video colonoscope was then inserted in the rectum, gradually advanced into the cecum without any difficulty. Careful examination was performed as the scope was gradually being withdrawn. Ileocecal valve and the appendiceal orifice were visualized and appeared normal. Prep was excellent. Mucosa of the cecum, ascending colon, transverse colon, descending colon appeared normal. Mucosa of the, sigmoid colon, and rectum had mucosal erythema, friability and granularity with spontaneous oozing and exudates consistent with active proctosigmoiditis and biopsies were done from this area. Retroflexion was performed in the rectum and no lesions were seen. The patient tolerated the procedure well. IMPRESSION: Active proctosigmoiditis with mucosal erythema, friability and granularity in the 20s oozing extending all the way up to 30 cm from anal verge s/p multiple biopsies Rest of the colon appeared normal RECOMMENDATIONS: Findings of this examination were discussed with the patient as well as her family. She was advised to follow-up with the biopsy results. She will be seen in the office next week.. If the biopsy does not show any evidence of dysplasia, she can have repeat colonoscopy in 2 years.
[2024-02-16 10:17] VITALS: RESP 12
[2024-02-16 10:34] VITALS: BP 126/72; PULSE 70
== END 2024-02-16 10:56 | disposition home or self-care (01) ==
LOC: ORWHC2ENDO 07:40
PROVIDERS: ATTEND Internal Medicine Gastroenterology
DX: Z12.11 Encounter for screening for malignant neoplasm of colon (principal); K51.30 Ulcerative (chronic) rectosigmoiditis without complications; E78.5 Hyperlipidemia, unspecified; Z79.899 Other long term (current) drug therapy; Z86.73 Personal history of transient ischemic attack (TIA), and cerebral infarction without residual deficits
CPT/HCPCS: 88305; 45380; J2003; J2704